=== PATIENT | female | born 1985 | race Caucasian/White ===

== ENCOUNTER 2019-07-12 07:09 | Emergency (ER) | payer MEDICAID ==
[~2019-07-12] VITALS: Ht 170.2 cm; Wt 72.6 kg
--- NOTE | 2019-07-12 07:20 | NUR ---
Dr Vick at the bedside for MSE.
[2019-07-12 07:53] VITALS: BP 145/89
--- NOTE | 2019-07-12 07:54 | NUR ---
Patient given written and verbal discharge instructions. Patient verbalizes understanding of instructions. Patient is ambulatory with steady gait. Refuses offer of care home placement. Patient given list of available shelters in surrounding area.
== END 2019-07-12 07:54 | disposition home or self-care (01) ==
LOC: ER 07:12
DX: R42 Dizziness and giddiness (principal); Z59.0 Homelessness
CPT/HCPCS: A4663